=== PATIENT | female | born 1960 | race Caucasian/White ===

== ENCOUNTER → 2016-07-01 | Outpatient (CLI) | payer BC ==
--- NOTE | 2016-07-02 08:56 | MM ---
Reason for exam: screening (asymptomatic). Last mammogram was performed 1 year ago. History: Patient is postmenopausal. Family history of breast cancer in mother at age 62, breast cancer in maternal aunt, and breast cancer in maternal grandmother at age 72. Taking other hormone. Took unspecified hormones for 2 years 6 months. Physical Findings: A clinical breast exam by your physician is recommended on an annual basis and results should be correlated with mammographic findings. MG 3D Screening Mammo W/Cad Bilateral CC and MLO view(s) were taken. Prior study comparison: June 19, 2015, bilateral MG 3d screening mammo w/cad. April 11, 2014, bilateral MG screening mammo w CAD. The breast tissue is heterogeneously dense. This may lower the sensitivity of mammography. Benign calcifications. There is no discrete abnormality. No significant changes when compared with prior studies. ASSESSMENT: Benign, BI-RAD 2 RECOMMENDATION: Routine screening mammogram of both breasts in 1 year.
== END | disposition home or self-care (01) ==
LOC: RADMAMWWP 13:49
PROVIDERS: ATTEND Family Medicine
DX: Z12.31 Encounter for screening mammogram for malignant neoplasm of breast (principal)
CPT/HCPCS: 77063; G0202

== ENCOUNTER → 2017-10-26 | Outpatient (CLI) | payer BC ==
--- NOTE | 2017-10-27 13:49 | MM ---
Reason for exam: screening (asymptomatic). Last mammogram was performed 1 year and 4 months ago. History: Patient is postmenopausal. Family history of breast cancer in mother at age 62, breast cancer in maternal aunt, and breast cancer in maternal grandmother at age 72. Taking other hormone. Took unspecified hormones for 2 years 6 months. Physical Findings: A clinical breast exam by your physician is recommended on an annual basis and results should be correlated with mammographic findings. MG 3D Screening Mammo W/Cad Bilateral CC and MLO view(s) were taken. Prior study comparison: July 01, 2016, bilateral MG 3d screening mammo w/cad. June 19, 2015, bilateral MG 3d screening mammo w/cad. There are scattered fibroglandular densities. Stable benign calcifications. There is no discrete abnormality. No significant changes when compared with prior studies. ASSESSMENT: Benign, BI-RAD 2 RECOMMENDATION: Routine screening mammogram of both breasts in 1 year.
== END | disposition home or self-care (01) ==
LOC: RADMAMWWP 16:15
PROVIDERS: ATTEND Family Medicine
DX: Z12.31 Encounter for screening mammogram for malignant neoplasm of breast (principal)
CPT/HCPCS: 77063; 77067

== ENCOUNTER → 2019-01-04 | Outpatient (CLI) | payer BC ==
--- NOTE | 2019-01-05 13:44 | MM ---
Reason for exam: screening (asymptomatic). Last mammogram was performed 1 year and 2 months ago. History: Patient is postmenopausal and history of other cancer. Family history of breast cancer in mother at age 62, breast cancer in maternal aunt, and breast cancer in maternal grandmother at age 72. Taking estrogen for 3 years beginning at age 55. Taking progesterone for 3 years beginning at age 55. Taking other hormone. Took unspecified hormones for 2 years 6 months. Physical Findings: A clinical breast exam by your physician is recommended on an annual basis and results should be correlated with mammographic findings. MG 3D Screening Mammo W/Cad Bilateral CC and MLO view(s) were taken. Prior study comparison: October 26, 2017, bilateral MG 3d screening mammo w/cad. July 01, 2016, bilateral MG 3d screening mammo w/cad. The breast tissue is heterogeneously dense. This may lower the sensitivity of mammography. Stable benign calcifications. There is no discrete abnormality. No significant changes when compared with prior studies. ASSESSMENT: Benign, BI-RAD 2 RECOMMENDATION: Routine screening mammogram of both breasts in 1 year.
== END ==
LOC: RADMAMWWP 12:59
PROVIDERS: ATTEND Family Medicine
DX: Z12.31 Encounter for screening mammogram for malignant neoplasm of breast (principal)
CPT/HCPCS: 77063; 77067

== ENCOUNTER → 2019-12-15 | Outpatient (CLI) | payer BC | END | disposition home or self-care (01) | LOC: LABWHC1 14:48 | PROVIDERS: ATTEND Family Medicine | DX: R07.0 Pain in throat (principal) | CPT/HCPCS: U0003; C9803 ==

== ENCOUNTER → 2020-05-14 | Outpatient (CLI) | payer BC ==
--- NOTE | 2020-05-15 13:27 | MM ---
Reason for exam: screening (asymptomatic). Last mammogram was performed 1 year and 4 months ago. History: Patient is postmenopausal and history of other cancer. Family history of breast cancer in mother at age 62, breast cancer in maternal aunt, and breast cancer in maternal grandmother at age 72. Taking estrogen for 3 years beginning at age 55. Taking progesterone for 3 years beginning at age 55. Taking other hormone. Took unspecified hormones for 2 years 6 months. Physical Findings: A clinical breast exam by your physician is recommended on an annual basis and results should be correlated with mammographic findings. MG 3D Screening Mammo W/Cad Bilateral CC and MLO view(s) were taken. Prior study comparison: January 04, 2019, bilateral MG 3d screening mammo w/cad. October 26, 2017, bilateral MG 3d screening mammo w/cad. There are scattered fibroglandular densities. No significant changes when compared with prior studies. ASSESSMENT: Benign, BI-RAD 2 RECOMMENDATION: Routine screening mammogram of both breasts in 1 year.
== END | disposition home or self-care (01) ==
LOC: RADMAMWWP 11:10
PROVIDERS: ATTEND Family Medicine
DX: Z12.31 Encounter for screening mammogram for malignant neoplasm of breast (principal)
CPT/HCPCS: 77063; 77067

== ENCOUNTER 2020-11-26 13:25 | Emergency (ER) | payer BC ==
[2020-11-26 13:33] VITALS: TEMP 98.1
--- NOTE | 2020-11-26 15:04 | ED ---
Head Injury HPI - General Chief complaint: Head Injury Stated complaint: head injury Time Seen by Provider: 11/26/20 14:17 Source: patient, family Mode of arrival: ambulatory Limitations: no limitations - History of Present Illness Initial comments: 60-year-old male presenting to emergency Department with a chief complaint of head injury. This occurred yesterday. Patient reports she was bent over and axilla lift her head causing an injury to the occipital region the head. Patient did not think much of the injury and there was no bleeding. States there was a small bump on the back of the head which has since mostly resolved. However, states she continues to have a headache now and feels slightly lightheaded but not dizzy where the room is spinning around her. She denies any visual changes, one-sided weakness or paresthesias. Denies any blood thinners but she is anticoagulated and aspirin. - Related Data Allergies/Adverse reactions: Allergies Allergy/AdvReac Type Severity Reaction Status Date / Time Penicillins Allergy Rash/Hives Verified 11/26/20 13:28 Sulfa (Sulfonamide Allergy Rash/Hives Verified 11/26/20 13:28 Antibiotics) Review of Systems ROS Statement: Those systems with pertinent positive or pertinent negative responses have been documented in the HPI. ROS Other: All systems not noted in ROS Statement are negative. Past Medical History Past Medical History: Hypertension History of Any Multi-Drug Resistant Organisms: None Reported Past Surgical History: Cholecystectomy, Hysterectomy Past Psychological History: No Psychological Hx Reported Smoking Status: Never smoker Past Alcohol Use History: None Reported Past Drug Use History: None Reported General Exam Limitations: no limitations General appearance: alert, in no apparent distress Head exam: Present: atraumatic, normocephalic, normal inspection. Absent: other (Negative Zavaleta sign, raccoon's, and ertapenem.) Eye exam: Present: normal appearance, EOMI Pupils: Present: normal accommodation ENT exam: Present: normal exam, normal oropharynx, mucous membranes moist, TM's normal bilaterally, normal external ear exam Neck exam: Present: normal inspection, full ROM. Absent: tenderness Respiratory exam: Present: normal lung sounds bilaterally. Absent: respiratory distress, wheezes, rales, rhonchi, stridor Cardiovascular Exam: Present: regular rate, normal rhythm, normal heart sounds. Absent: systolic murmur GI/Abdominal exam: Present: soft. Absent: distended, guarding Extremities exam: Present: normal inspection, full ROM Back exam: Present: normal inspection, full ROM. Absent: tenderness Neurological exam: Present: alert, oriented X3 Psychiatric exam: Present: normal affect, normal mood Skin exam: Present: warm, dry, intact, normal color Course Vital Signs 11/26/20 13:29 Temperature 98.1 F Pulse Rate 103 H Respiratory 18 Rate Blood Pressure 150/78 O2 Sat by Pulse 97 Oximetry Medical Decision Making - Medical Decision Making 60-year-old male presenting to emergency Department with a chief complaint of head injury. On physical examination, no acute findings. Patient is otherwise well-appearing. CT of the brain and C-spine is unremarkable. Patient likely suffered a concussion secondary to the symptoms that she is experiencing. Patient was advised to follow with her primary care physician. I advised mental physical rest. Return parameters were thoroughly discussed the patient was understanding and agreeable. Case discussed with physician. Disposition Clinical Impression: Closed head injury, Contusion of scalp Disposition: HOME SELF-CARE Condition: Stable Instructions (If sedation given, give patient instructions): Concussion (ED) Additional Instructions: Please return to the Emergency Department if symptoms worsen or any other concerns. Is patient prescribed a controlled substance at d/c from ED?: No Referrals: Fern Morris MD [Primary Care Provider] - 1-2 days Time of Disposition: 15:46
--- NOTE | 2020-11-26 15:37 | CT ---
EXAMINATION TYPE: CT brain adela an DATE OF EXAM: 11/26/2020 COMPARISON: None HISTORY: Left sided head injury, patient on blood thinners. Unenhanced CT of the brain was performed. The ventricles, basal cisterns and sulci overlying the cerebral convexities demonstrate mild enlargem ent. There is no evidence for intracranial hemorrhage or sulcal effacement. There is decreased attenuatio n about the periventricular white matter and deep white matter of both cerebral hemispheres, compatib le with chronic small vessel ischemia. No mass effects are seen. If symptoms persist consider MRI. Osseous calvarium is intact. IMPRESSION: 1. Age related atrophic and chronic small vessel ischemic change without acute intracranial process seen at this time. CT Cervical Spine: Unenhanced CT of the cervical spine was performed with bone and soft tissue window settings submitted . Coronal and sagittal reconstruction is obtained. There is normal alignment and prevertebral soft tissues. No evidence for acute cervical fracture . Scattered degenerative disc disease and spondylosis. Nonspecific infiltrates within the upper lobes. Areas of nodularity measuring up to 1.[address] chest. IMPRESSION: 1. No evidence for acute fracture or subluxation of the cervical spine. 2. onspecific infiltrates within the upper lobes. Areas of nodularity measuring up to 1.[address] chest.
[2020-11-26 15:49] VITALS: BP 150/80; PULSE 98; RESP 16
== END 2020-11-26 16:05 | disposition home or self-care (01) ==
LOC: EC 13:25
DX: S00.03XA Contusion of scalp, initial encounter (principal); I10 Essential (primary) hypertension; Z88.0 Allergy status to penicillin; Z88.2 Allergy status to sulfonamides; Z79.01 Long term (current) use of anticoagulants; Z90.49 Acquired absence of other specified parts of digestive tract; Z90.710 Acquired absence of both cervix and uterus; X58.XXXA Exposure to other specified factors, initial encounter
CPT/HCPCS: 70450; 72125; 99284

== ENCOUNTER → 2021-10-02 | Outpatient (CLI) | payer BC ==
--- NOTE | 2021-10-06 22:02 | MM ---
Reason for Exam: Screening (asymptomatic). Last mammogram was performed 1 year(s) and 4 month(s) ago. Patient History: Menarche at age 13. First Full-Term at age 22. Hysterectomy at age 45. Postmenopausal. Estrogen, starting at age 45 for 3 years. Maternal grandmother had breast cancer, age 72. Maternal aunt had breast cancer, age 52. Cousin (olrenzo) had breast cancer, age 44. Mother had breast cancer, age 62. Risk Values: Emily 5 year model risk: 2.8%. NCI Lifetime model risk: 13.2%. Prior Study Comparison: 10/26/2017 Bilateral Screening Mammogram, [facility]. 01/04/2019 Bilateral Screening Mammogram, [facility]. 05/14/2020 Bilateral Screening Mammogram, [facility]. Tissue Density: There are scattered fibroglandular densities. Findings: Analyzed By CAD. There is no suspicious group of microcalcifications or new suspicious mass in either breast. Overall Assessment: Benign, BI-RAD 2 Management: Screening Mammogram of both breasts in 1 year. 1. The patient to continue monthly breast exams. 2. A clinical breast exam by your physician is recommended on an annual basis. 3. This exam should not preclude additional follow-up of suspicious palpable abnormalities. Electronically signed and approved by: Angi Muhammad M.D. Radiologist
== END | disposition home or self-care (01) ==
LOC: RADMAMWWP 16:15
PROVIDERS: ATTEND Family Medicine
DX: Z12.31 Encounter for screening mammogram for malignant neoplasm of breast (principal); Z80.3 Family history of malignant neoplasm of breast; Z78.0 Asymptomatic menopausal state
CPT/HCPCS: 77063; 77067

== ENCOUNTER 2022-07-16 08:33 | Day surgery (SDC) | payer BC ==
[2022-07-11 14:07] VITALS: BMI 24.7
[~2022-07-16 08:33] MED LIST: LACTATED RINGERS 1,000 ML IV SCH
[2022-07-16] MEDS ORDERED: LACTATED RINGERS 1,000 ML IV ONE (09:00)
[2022-07-16 09:12] VITALS: TEMP 97
[2022-07-16] MEDS ORDERED: PROPOFOL 10 MG/ML 20 ML VIAL IV ONE (09:32)
--- NOTE | 2022-07-16 10:04 | P.PCN ---
Date of Procedure: 07/16/22 Procedure(s) Performed: BRIEF HISTORY: Patient is a 61-year-old pleasant white female scheduled for an elective colonoscopy as a part of screening for colon cancer and family history of colon cancer. Her mother was diagnosed with colon cancer at age 80. Her last colonoscopy was 7 years ago. PROCEDURE PERFORMED: Colonoscopy. PREOPERATIVE DIAGNOSIS:: Gaining for colon Cancer and family history of colon cancer. IV sedation per Anesthesia. PROCEDURE: After informed consent was obtained, the patient, was brought into the endoscopy unit. IV sedation was administered by Anesthesia under continuous monitoring. Digital rectal examination was normal. Initially the Olympus CF-160 flexible video colonoscope was then inserted in the rectum, gradually advanced into the cecum without any difficulty. Careful examination was performed as the scope was gradually being withdrawn. Ileocecal valve and the appendiceal orifice were visualized and appeared normal. Prep was excellent. Mucosa of the cecum, ascending colon, transverse colon, descending colon, sigmoid colon, and rectum appeared normal. Scattered sigmoid diverticula cyst. Retroflexion was performed in the rectum and no lesions were seen. The patient tolerated the procedure well. IMPRESSION: Normal-appearing colon from rectum to cecum with no evidence of colorectal neoplasia Scattered sigmoid diverticulosis. RECOMMENDATIONS: Findings of this examination were discussed with the patient as well as her family. She was advised to have a repeat screening colonoscopy every 5 years because of the family history of colon cancer.
[2022-07-16 10:10] VITALS: RESP 18
[2022-07-16 10:22] VITALS: BP 113/79; PULSE 97
== END 2022-07-16 10:37 | disposition home or self-care (01) ==
LOC: ORWHC2ENDO 08:33
PROVIDERS: ATTEND Internal Medicine Gastroenterology
DX: C18.9 Malignant neoplasm of colon, unspecified (principal); K57.30 Diverticulosis of large intestine without perforation or abscess without bleeding; I10 Essential (primary) hypertension; E78.5 Hyperlipidemia, unspecified; G47.33 Obstructive sleep apnea (adult) (pediatric); I25.10 Atherosclerotic heart disease of native coronary artery without angina pectoris; Z79.899 Other long term (current) drug therapy; Z80.0 Family history of malignant neoplasm of digestive organs
CPT/HCPCS: 45378; J2704

== ENCOUNTER → 2022-11-05 | Outpatient (CLI) | payer BC ==
--- NOTE | 2022-11-06 22:48 | MM ---
Reason for Exam: Screening (asymptomatic). Last mammogram was performed 1 year(s) and 2 month(s) ago. Patient History: Menarche at age 13. First Full-Term at age 22. Hysterectomy at age 45. Postmenopausal. Estrogen, starting at age 45 for 3 years. Maternal grandmother had breast cancer, age 72. Maternal aunt had breast cancer, age 52. Cousin (lorenzo) had breast cancer, age 44. Mother had breast cancer, age 62. Risk Values: Emily 5 year model risk: 2.9%. NCI Lifetime model risk: 12.8%. Prior Study Comparison: 01/04/2019 Bilateral Screening Mammogram, [facility]. 05/14/2020 Bilateral Screening Mammogram, [facility]. 10/02/2021 Bilateral MG 3D screening mammo w/cad, [facility]. Tissue Density: There are scattered fibroglandular densities. Findings: Analyzed By CAD. Chronic nodularity on the right. There is no suspicious group of microcalcifications or new suspicious mass in either breast. Overall Assessment: Benign, BI-RAD 2 Management: Screening Mammogram of both breasts in 1 year. . Patient should continue monthly self-breast exams. A clinical breast exam by your physician is recommended on an annual basis. This exam should not preclude additional follow-up of suspicious palpable abnormalities. Note on Emily scores and lifetime risk: 1. A Emily score greater than 3% is considered moderate risk. If this is the case, consider specialist referral to assess eligibility for a risk reducing agent. 2. If overall lifetime risk for the development of breast cancer is 20% or higher, the patient may qualify for future screening with alternating mammogram and breast MRI. Electronically signed and approved by: Angi Muhammad M.D. Radiologist
== END | disposition home or self-care (01) ==
LOC: RADMAMWWP 14:56
PROVIDERS: ATTEND Family Medicine
DX: Z12.31 Encounter for screening mammogram for malignant neoplasm of breast (principal); Z78.0 Asymptomatic menopausal state; Z80.3 Family history of malignant neoplasm of breast
CPT/HCPCS: 77063; 77067